=== PATIENT | female | born 1985 | race American Indian/Alaskan Native ===

== ENCOUNTER 2021-08-29 23:24 | Emergency (ER) | payer MEDICAID ==
[2021-08-29 23:38] VITALS: BP 108/78
--- NOTE | 2021-08-30 08:05 | Emergency Department Report ---
Chief Complaint: Anxiety Stated Complaint: NEED TO SEE A [employer] Time Seen by Provider: 08/30/21 08:00 - HPI History of Present Illness: 36-year-old -Turk[place] female who is homeless presents to the emergency room stating that she comes in as she needs transportation to [place] where her mother lives. Patient admits that she has a past medical history of schizophrenia but is currently on no meds. Patient denies any suicidal homicidal ideation. She denies any chest pain shortness of breathing difficulty walking back pain nausea vomiting. She states she has a primary care provider Dr. Solitario Sykes in [place]. - ROS Review of Systems: General: Awake, appropriately interactive, no acute distress. Neck: Supple. Full range of motion intact. Cardiovascular: Normal peripheral perfusion. Regular rate and rhythm no murmurs Pulmonary: No respiratory distress. Patient is speaking normally without use of accessory muscles. Lungs are normal Skin: No apparent rashes or lesions. Neurological: No facial asymmetry. Speech is clear. Follows commands. Patient is alert and oriented. Musculoskeletal: Full range of motion, no crepitus. No tenderness to palpate nonerythematous no edema test appreciated. Able to bear weight and ambulate without difficulty. Distal neurovascular and motor/sensory function is intact. Psych: Cooperative. Tangential talking not able to stay focused pleasant nonconfrontational - Exam Vital Signs: Vital Signs 08/29/21 23:35 Temperature 98.6 F Pulse Rate 86 Respiratory 20 Rate Blood Pressure 108/78 [Left] O2 Sat by Pulse 99 Oximetry MSE screening note: Focused history and physical exam performed. Due to findings the following was ordered: ED Medical Decision Making - Medical Decision Making 36-year-old -Turk[place] female who is homeless presents to the emergency room stating that she comes in as she needs transportation to [place] where her mother lives. Patient admits that she has a past medical history of schizophrenia but is currently on no meds. Patient denies any suicidal homicidal ideation. She denies any chest pain shortness of breathing difficulty walking back pain nausea vomiting. She states she has a primary care provider Dr. Solitario Sykes in [place]. Discussed with patient she needs to call for a cab or call for a family member to come and pick her up. Patient has no medical needs. Normal examination stable. ED Disposition for MSE Clinical Impression: Homelessness Disposition: 01 HOME / SELF CARE / HOMELESS Is pt being admited?: No Does the pt Need Aspirin: No Condition: Stable Instructions: Mindfulness-Based Stress Reduction Additional Instructions: Need to call a cab or family member to come and get you. And follow-up with your primary care provider consider being evaluated with your mental health and being placed on medications. Referrals: PRIMARY CARE, [Primary Care Provider] - 3-5 Days [facility] [Other] - 3-5 Days Time of Disposition: 08:04
== END 2021-08-30 08:22 | disposition home or self-care (01) ==
LOC: ED 23:24
DX: Z59.00 Homelessness unspecified (principal); F20.9 Schizophrenia, unspecified
CPT/HCPCS: 99283